=== PATIENT | female | born 1975 | race African-American/Black ===

== ENCOUNTER 2016-06-29 06:15 | Inpatient (IN) | payer MEDICARE ==
[~2016-06-29] VITALS: Ht 167.6 cm; Wt 72.9 kg
[2016-06-29] MEDS ORDERED: RESTORIL15 MG PO ×2 (06:32→06:43)
[2016-06-29] MEDS ORDERED: CYCLOBENZAPRINE5 MG PO (06:32)
[2016-06-29] MEDS ORDERED: METOPROLOL TART50 MG PO (06:38)
[2016-06-29] MEDS ORDERED: MEGACE 20 MG TA20 MG PO (06:38)
[2016-06-29] MEDS ORDERED: PHOSLO667 MG PO (06:39)
[2016-06-29] MEDS ORDERED: PEPCID40 MG PO (06:39)
[2016-06-29] MEDS ORDERED: LIPITOR40 MG PO (06:40)
[2016-06-29] MEDS ORDERED: COZAAR100 MG PO (06:40)
[2016-06-29] MEDS ORDERED: ZOFRAN8 MG PO (06:40)
[2016-06-29] MEDS ORDERED: ELAVIL25 MG PO (06:41)
[2016-06-29] MEDS ORDERED: ASPIRIN325 MG PO (06:41)
[2016-06-29] MEDS ORDERED: PROTONIX40 MG PO (06:42)
[2016-06-29] MEDS ORDERED: RENA-VITE TABL0.8 MG PO (06:43)
--- NOTE | 2016-06-29 07:57 | NUR ---
AM ROUNDING- RECEIVED REPORT FROM BANKING ANALYST NURSE GENET. PT IS CURRENTLY LAYING IN BED ON LEFT SIDE WITH EYES OPEN RESTING. PT STATES SHE IS HAVING SLIGHT CHEST PAIN, WHEN ASKED PT IF CHEST PAIN IS WHEN SHE TAKES DEEP BREATH IN PT STATES "YES". EKG DONE BY STAFF DEVELOPMENT NURSE. ASKED SELMA IN TELEMETRY TO GET PT HEART MONITOR READY. ON 02 AT 2L VIA NC. RESERVE RIGHT ARM FOR AVF (PT DIALYSES ON M, W, AND F PER REPORT). 18G IV SEEN TO LEFT FOREARM THAT IS CURRENTLY SALINE LOCKED. 20G IV SEEN TO LEFT HAND THAT IS CURRENTLY SALINE LOCKED. PER GENET, RITA; MED REC WAS DONE THIS AM BUT PT STILL NEEDS ADMISSION ASSESSMENT/ADMISSION HISTORY DONE. WILL GET DONE TODAY ON SHIFT. WILL CONTINUE TO MONITOR AND CONTINUE WITH PLAN OF CARE.
[2016-06-29 08:37] VITALS: BP 129/91
--- NOTE | 2016-06-29 10:13 | NUR ---
PLACED ON MONITOR. MONITOR SHOWING ST, HR 138 1013- PAGED KRYSTAL WITH RENAL TO INFORM HER OF PTS HR. AWAITING CALLBACK.
[2016-06-29 10:15] VITALS: BP 112/87; BMI 24.7
--- NOTE | 2016-06-29 11:04 | NUR ---
PAGED DR. OLMEDO BECAUSE I HAVE NOT YET HEARD BACK FROM NADIYA RICE TO INFORM HIM OF PTS ST, HR 138. WILL AWAIT CALLBACK AND CONTINUE TO MONITOR.
--- NOTE | 2016-06-29 11:09 | NUR ---
RECEIVED CALLBACK FROM DR. OLMEDO (BAND LOG MILL AND CARRIAGE OPERATOR FOR RENAL). GAVE TELEPHONE ORDERS FOR 5MG OF CARDIZEM IV ONCE. DR. OLMEDO STATED TO CALL DR. JOYNER FOR CONSULT. WILL DO ORDERED AND CONTINUE TO MONITOR.
--- NOTE | 2016-06-29 12:11 | NUR ---
PTS ADMISSION ASSESSMENT AND ADMISSION HISTORY DONE.
--- NOTE | 2016-06-29 12:28 | NUR ---
ON MONITOR SHOWING SR, HR 86.
[2016-06-29 12:32] VITALS: BP 109/79
[2016-06-29 14:02] VITALS: Ht 167.6 cm; Wt 72.9 kg
--- NOTE | 2016-06-29 14:21 | NUR ---
1245- PT TO DIALYSIS VIA WHEELCHAIR.
--- NOTE | 2016-06-29 17:51 | NUR ---
PT IS STILL DOWN IN DIALYSIS. HAVE NOT RECEIVED CALL FROM DIALYSIS NURSE YET. WILL AWAIT DIALYSIS NURSE TO CALL AND GIVE REPORT.
--- NOTE | 2016-06-29 18:04 | NUR ---
PT BACK FROM DIALYSIS VIA WHEELCHAIR.
--- NOTE | 2016-06-29 20:22 | NUR ---
ASSESSMENT DONE. PT LAYING IN BED WATCHING TV, AND TEXTING ON PHONE. HOB ELEVATED. NO DISTRESS NOTED. WHEN NURSE ASKED PT ABOUT CP SHE STATES "IT IS JUST MOSTLY INDIGESTION I THINK." PT DENIES PAIN IN LEFT ARM OR NECK. DENIES SOB. DENIES NEEDS OR WANTS AT THIS TIME. CALL LIGHT WITH IN REACH. WILL CONT. TO MONITOR.
[2016-06-29 20:57] VITALS: BP 134/93
--- NOTE | 2016-06-29 21:45 | NUR ---
PT SLEEPING. EASILY AWAKEN. MEDS GIVEN. PT REQUEST A SNACK, STATING SHE IS HUNGERY. SANDWICH PROVIDED. PT DENIES OTHER NEEDS AT THIS TIME. WILL WILL CONT. TO MONITOR.
[2016-06-29 23:00] VITALS: BP 105/77
--- NOTE | 2016-06-30 00:57 | NUR ---
PT SLEEPING. EYES CLOSED. RESP EVEN AND UNLABORED. NO DISTRESS NOTED. CALL LIGHT WITH IN REACH. WILL CONT. TO MONITOR.
--- NOTE | 2016-06-30 02:50 | NUR ---
PT SLEEPING. RESP EVEN AND UNLABORED. APPEARS COMFORTABLE. CALL LIGHT WITH IN REACH. WILL CONT. TO MONITOR.
--- NOTE | 2016-06-30 03:42 | NUR ---
SOCIAL SERVICES SPECIALIST AT BEDSIDE TO OBTAIN VITALS, CALL LIGHT IN REACH. WILL CONTINUE WITH PLAN OF CARE.
--- NOTE | 2016-06-30 04:44 | NUR ---
PT SLEEPING. APPEARS COMFORTABLE. RESP EVEN AND UNLABORED. CALL LIGHT WITH IN REACH. WILL CONT. TO MONITOR.
[2016-06-30 05:47] VITALS: BP 101/71
[2016-06-30 05:48] LABS: EOSINOPHILS 10.5 % (0-7); HEMATOCRIT 31.7 % (36.0-48.0); HEMOGLOBIN 9.6 g/dL (12-16); IMMATURE GRANULOCYTES 0.1 % (0-5); LYMPHOCYTES 9.3 % (15-50); MCH 27.5 pg (26.0-34.0); MCHC 30.3 g/dL (31.0-37.0); MCV 90.8 fL (80.0-100.0); MEAN PLATELET VOLUME 10.2 fL (7.4-10.4); MONOCYTES 18.1 % (2-11); PLATELET COUNT 292 10x3/uL (130-400); RBC 3.49 10x6/uL (4.00-5.40); RDW 17.2 % (11.5-14.5); WBC 8.7 10x3/uL (4.8-10.8)
[2016-06-30 06:29] LABS: ANION GAP 16.5 mmol/L (8-16); CALCIUM 8.4 mg/dL (8.5-10.1); CARBON DIOXIDE 29.1 mmol/L (21.0-32.0); CREATININE - SERUM 5.7 mg/dL (0.6-1.3); POTASSIUM - SERUM 3.6 mmol/L (3.5-5.1)
--- NOTE | 2016-06-30 07:37 | NUR ---
AM ROUNDING- RECEIVED REPORT FROM GETTERER NURSE GENET. PT IS CURRENTLY LAYING IN BED ON LEFT SIDE WITH EYES CLOSED RESTING. ON MONITOR SHOWING SR, HR 84. ON O2 AT 2L VIA NC. IV SEEN TO LEFT HAND THAT IS CURRENTLY SALINE LOCKED. SECOND IV SEEN TO LEFT FOREARM THAT IS CURRENTLY SALINE LOCKED. PT IS RESERVE RIGHT ARM FOR AVF (PT DIALYZES ON M, W, AND F). NO NEED AT CURRENT TIME. WILL CONTINUE TO MONITOR AND CONTINUE WITH PLAN OF CARE.
[2016-06-30 08:03] VITALS: BP 105/70
[2016-06-30 12:10] VITALS: BP 105/80
--- NOTE | 2016-06-30 12:45 | NUR ---
DIALYSIS COORDINATOR: PATHWAYS: Amanda [facility] Dialysis on MWF am shift. Med records forwarded to the clinic and clinic notified. FABIANO SNYDER.
[2016-06-30 15:49] VITALS: BP 95/65
--- NOTE | 2016-06-30 18:25 | NUR ---
PT LAYING IN BED ON BACK WITH EYES OPEN RESTING. DENIES ANY NEED AT CURRENT TIME. WILL CONTINUE TO MONITOR.
--- NOTE | 2016-06-30 19:30 | NUR ---
RESUMED CARE OF PT, LYING IN BED RESPIRATIONS EVEN AND UNLABORED ON 2LPM VIA NC. [address] WITH PVCS ON TELEMETRY. LEFT HAND AND FOREARM SALINE LOCKED. CALL LIGHT IN REACH. WILL CONTINUE TO MONITOR. SEE NURSE ASSESSMENT.
[2016-06-30 20:00] VITALS: BP 101/60
--- NOTE | 2016-06-30 22:00 | NUR ---
PT SITTING UP IN BED WATCHING TV. DENIES PAIN. ASSESSMENT COMPLETE PER FLOW-SHEET. BROUGHT PT PEANUT BUTTER AND GRAHAMS CRACKERS FOR SNACK. NO OTHER NEEDS. WILL CONTINUE TO MONITOR.
[2016-07-01] VITALS: BP 105/70
[2016-07-01 04:00] VITALS: BP 92/57
[2016-07-01 05:51] LABS: BASOPHILS 0.4 % (0.0-2.0); EOSINOPHILS 12.4 % (0-7); HEMATOCRIT 28.4 % (36.0-48.0); HEMOGLOBIN 8.9 g/dL (12-16); IMMATURE GRANULOCYTES 0.4 % (0-5); LYMPHOCYTES 11.2 % (15-50); MCH 28.1 pg (26.0-34.0); MCHC 31.3 g/dL (31.0-37.0); MCV 89.6 fL (80.0-100.0); MEAN PLATELET VOLUME 9.7 fL (7.4-10.4); MONOCYTES 15.9 % (2-11); NEUTROPHILS 59.7 % (40-80); PLATELET COUNT 304 10x3/uL (130-400); RBC 3.17 10x6/uL (4.00-5.40); WBC 7.8 10x3/uL (4.8-10.8)
[2016-07-01 06:00] LABS: ANION GAP 10.3 mmol/L (8-16); CALCIUM 8.7 mg/dL (8.5-10.1); CARBON DIOXIDE 32.4 mmol/L (21.0-32.0); CREATININE - SERUM 7.1 mg/dL (0.6-1.3); POTASSIUM - SERUM 3.7 mmol/L (3.5-5.1)
--- NOTE | 2016-07-01 07:35 | NUR ---
Awake easily, verbalized name and , reserve right arm fistula. Scheduled for dialysis today. Verbalized no complaints.
[2016-07-01 08:58] VITALS: BP 118/64
--- NOTE | 2016-07-01 10:19 | CN ---
PATIENT NAME:TIFF HERRERA MEDICAL RECORD: [id number] : [birth year] LOCATION:D. D.2136 ADMIT DATE: 06/29/16 ACCOUNT: [id number] CONSULTING PHYSICIAN: CRISTELA JOYNER MD REFERRING PHYSICIAN: ROLANDO DAEV MD DATE OF CONSULTATION: 06/29/2016 Cardiology Consultation DIAGNOSES: 1. Tachycardia. 2. Aortic, mitral and tricuspid valve replacement at [facility]. 3. Hypertension. 4. End-stage renal failure, on dialysis. HISTORY OF PRESENT ILLNESS: Mrs. Herrera presents with tachycardia and chest pain. She had this during dialysis. She was normally seen by Dr. Leal in [place]. It sounds like from her history, she had a transcatheter valve replacement of the aortic valve in November of last year and then she continued to have problems with some mitral and tricuspid valve. These were placed in May of this year. She usually has a heart rate at approximately 100. She is now her heart rate in the 140. She does feel the palpitations. She has some generalized chest discomfort with the tachycardia, but no acute chest discomfort. Her EKG is with no acute ST-T abnormalities, but it is sinus tachycardia in the 140 range. She is on Lopressor 75 mg b.i.d. for the tachycardia as well as she is on losartan at 100 mg q.day. PHYSICAL EXAMINATION: GENERAL APPEARANCE: Well-nourished, well-developed, appears stated age. Level of distress, comfortable. PSYCHIATRIC: Mental status, alert, normal affect. Orientation, oriented to time, place and person. EYES: Lids and conjunctiva, noninjected. No discharge, no pallor. ENT: Lips, teeth, gums, normal dentition. Oropharynx, no cyanosis, no pallor. NECK: Carotid arteries, bilateral normal upstroke, no bruits, no thrills. JUGULAR VEINS: No jugular venous pressure or distention. CERVICAL LYMPH NODES: Nontender, nonenlarged. THYROID: Not enlarged. Nontender. No nodules. LUNGS: Respiratory effort, unlabored. CHEST: Normal curvature. No thoracic deformity. No chest wall tenderness. Percussion, resonant. Auscultation, clear. No wheezes, no rales, no rhonchi. CARDIOVASCULAR: Precordial exam, nondisplaced. No heaves or pericardial thrills. Rate and rhythm, regular. Heart sounds, normal S1, normal S2. No S3, no gallop, no rub. Systolic murmur, not heard. Diastolic murmur, not heard. EXTREMITIES: No cyanosis, no edema. Peripheral pulses, full and equal in all extremities, except as noted. No bruits appreciated. ABDOMEN: Soft, nondistended. Normal aorta. No bruit. Nontender. No masses. Liver, nontender, no hepatomegaly. Spleen, nontender, no splenomegaly. MUSCULOSKELETAL: No joint tenderness. No joint swelling. No erythema. NEUROLOGICAL: Normal gait, normal strength, normal tone. SKIN: Warm and dry. REVIEW OF SYSTEMS: The patient reports easy bruising but reports no swollen glands. The patient reports no fever, no night sweats, no significant weight gain, no significant weight loss. No significant exercise tolerance. The CONSULT REPORT [id number] TIFF HERRERA patient reports no dry eyes, no irritation, no vision change. Patient reports no difficulty hearing and no ear pain. Patient reports no frequent nose bleeds or nose and sinus problems. Patient reports on arm pain on exertion. No shortness of breath while lying down. No history of heart murmur. Patient reports no cough, no wheezing or coughing up blood. Patient reports no abdominal pain, no vomiting. Normal appetite. No diarrhea and not vomiting blood. No nausea and no constipation. Patient reports no incontinence. No difficulty urinating. No hematuria. No increased frequency. Patient reports no muscle aches. No weakness, no arthralgias, no back pain. No swelling of the extremities. Patient reports no abnormal mole, no jaundice, no rashes. Reports no loss of consciousness. No weakness and no numbness. No seizures, dizziness, or headaches. The patient reports no depression, no sleep disturbance, feeling safe in a relationship and no alcohol abuse. Patient reports on fatigue. Reports no runny nose or sinus pressure. No itching, no hives, and no frequent sneezing. OVERALL IMPRESSION: At this time, we will center treatment on increasing beta lópez. We will give her 100 mg b.i.d. We will hold the losartan at this point, can even go up to 200 mg b.i.d. of Lopressor to get better heart rate control along with her blood pressure control. TRANSINT:[id number] Voice Confirmation ID: [id number] DOCUMENT ID: [id number] CRISTELA JOYNER MD at 1019 CC: [id number] DICTATION DATE: 06/29/16 1144 FISHING ROD MARKER: 06/29/16 1817 ADM IN [facility] [address] [id number]
[2016-07-01] MEDS ORDERED: METOPROLOL TART50 MG PO (11:17)
[2016-07-01 13:16] VITALS: BP 106/80
--- NOTE | 2016-07-01 14:48 | NUR ---
Just completed ADL's, verbalized no compliants
[2016-07-01 17:21] VITALS: BP 95/60
--- NOTE | 2016-07-01 17:30 | NUR ---
Patient Name: TIFF HERRERA Admission Status: Elective Accout number: [id number] Admission Date: 06-29-2016 : 1975 Admission Diagnosis:TACHYCARDIA, UNSPECIFIED Attending: CLARIBEL Current LOS: 2 Anticipated DC Date:07-01-2016 Planned Disposition: Home WITH HOME HEALTH Primary Insurance: MEDICARE A & B PLANNED EXTERNAL PROVIDER: [facility] Discharge Planning Comments: * Is the patient Alert and Oriented? Yes 0 * How many steps to enter\exit or inside your home? NONE 0 * PCP DR. DAVIS IN [place] 0 * Pharmacy [facility] IN [place] 0 * Preadmission Environment Home Alone 0 * ADLs Independent 0 * Equipment Oxygen 0 * Other Equipment OXYGEN AT NIGHT ONLY [facility] - MEDICAL EQUIPMENT PROVIDER PREFERENCE 0 * List name and contact numbers for known caregivers / representatives who currently or will assist patient after discharge: JAKOB GOMES, AUNT, 0 * Community resources currently utilized Home Health Other 0 * Please name any agencies selected above. [facility], [facility] IN [place], //, [phone], [facility] * Additional services required to return to the preadmission environment? No 0 * Can the patient safely return to the preadmission environment? Yes 0 * Has this patient been hospitalized within the prior 30 days at any hospital? No 0 CM MET WITH PT IN ROOM TO DISCUSS DISCHARGE PLANNING AND NEEDS. PT REPORTS LIVING AT HOME INDEPENDENTLY AND ALONE. PT HAS OXYGEN FOR NIGHT USE ONLY [facility]. PT HAS [facility], NURSING ONCE WEEKLY. PT GOES TO [facility] ON // SCHEDULE, FAMILY [facility]SP[facility]TS. CM DISCUSSED AVAILABILITY OF HOME HEALTH, REHAB SERVICES AND MEDICAL EQUIPMENT. PT DENIES DISCHARGE NEEDS, REPORTS HER AUNT WILL PICK HER UP FOR DISCHARGE HOME. IMPORTANT MESSAGE FROM MEDICARE PROVIDED AND EXPLAINED. TO RESUME HOME HEALTH AT DISCHARGE, NOTIFY [employer] COUNT INCLUDES THE [facility], , FAX DISCHARGE INFORMATION TO [facility] AT [phone]. Steam Hoist Operator: Vipul Krishnan
--- NOTE | 2016-07-01 19:04 | NUR ---
Patient insisting that she is to be discharged home, no discharge order noted. called, per answering service Joy is pv design and installation technician. Call placed for call back.
--- NOTE | 2016-07-01 20:25 | NUR ---
DC'D IV CATH STILL INTACTED. GAVE INFO DC PAPERS, HAD PATIENTS SIGN VERBALIZED UNDERSTANDING. TOOK HER DOWN IN THE WHEELCHAIR AND FAMILY MEMBER TOOK HER HOME.
== END 2016-07-01 20:27 | disposition home health service (06) | DRG 308 ==
LOC: D.M2 06:15 → OBSVTIME 06:15 → D.M2 06:15
PROVIDERS: Internal Medicine; ADMIT Internal Medicine Nephrology
PROC: 5A1D60Z (ICD-10-PCS; principal; 2016-06-29)
DX: R00.0 Tachycardia, unspecified (principal); N18.6 End stage renal disease; I12.0 Hypertensive chronic kidney disease with stage 5 chronic kidney disease or end stage renal disease; R18.8 Other ascites; Z99.2 Dependence on renal dialysis; D63.1 Anemia in chronic kidney disease; Z95.2 Presence of prosthetic heart valve; R51 Headache

== ENCOUNTER 2017-11-14 06:17 | Day surgery (SDC) | payer MEDICARE ==
[~2017-11-14] VITALS: Ht 167.6 cm; Wt 81.6 kg
--- NOTE | ~2017-11-14 | OP ---
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 SURGEON: Kalin Díaz MD ANESTHESIA: Regional nerve block and general with LMA per PARAGLIDING INSTRUCTOR. OPERATION PERFORMED: Implantation of 6 mm standard wall straight Propaten PTFE between the brachial artery just above the antecubital space and the basilic vein, in the upper arm, almost in the axilla. PREOPERATIVE NOTE: This young lady has been on dialysis for a number of years. She has had a very successful right brachiocephalic AV fistula, which was converted to a translocation type fistula to the axillary vein, but has recently been plagued with subclavian vein stenosis. The stenosis is very acute. It occurs at the first rib and the fistula is quite pulsatile and aneurysmal. I felt that this stenosis would certainly recur if it were stented alone and the patient declined claviculectomy. I did not offer first rib resection. She has had a failed graft recently in her left arm, but I believe should probably be able to have a new graft implanted on that side. I would certainly rather try that, then go directly to a thigh graft. For now, she is dialyzing successfully with her aneurysmal right arm fistula and I hope we can continue using this for the next several weeks. If it gets to be really problematic, we can probably dilate the central vein stenosis again to give this more time for her new graft to mature. Under regional block as well as general anesthesia, the patient was prepped and draped in a sterile manner. I examined her first with ultrasound and noted positions of the veins and artery in the axilla and upper arm and the brachial artery in the arm just above the antecubital space. I made 2 incisions, one transversely in the axilla and I exposed the basilic vein all the way up to its juncture with the brachial veins to form the axillary vein. The veins in this area were very easily torn and there was a problem throughout in controlling venous bleeding, but we eventually got it under control with sutures and clips and the use of some thrombin-soaked fibrillar. The basilic vein was controlled with Silastic loops or atraumatic clamps. The vein was opened and flushed with heparinized saline. A 6 mm Propaten standard wall thickness graft was bevelled and then anastomosed end-to-side end of graft to side of vein with running 6-0 Prolene and then all were flushed again with heparinized saline. The incision just above the elbow was deepened and previous vein to brachial artery anastomosis was exposed and the artery fully dissected and controlled with Silastic loops. The vein was found not to be completely occluded. It was ligated and divided and the resultant stump of the old graft was cut down to the arterial anastomosis. The artery was flushed with heparinized saline. The new graft was pulled through a very superficial subcutaneous tunnel down to the distal incision where it was shortened and bevelled and it was anastomosed to OPERATIVE REPORT [id number] TIFF HERRERA D the brachial artery again with continuous running 6-0 Prolene and when occluding loops and clamps were released, excellent flow was established in the new graft. Hemostasis was adequate at all suture lines. The wounds were irrigated with Ancef and gentamicin solution. They were irrigated and infiltrated with 0.25% Marcaine with epinephrine and the wounds were closed without the use of a drain approximating subcutaneous tissues with interrupted inverted 3-0 Vicryl and the skin with running intracuticular 4-0 Monocryl and Dermabond glue. The incisions were each dressed with Maxorb Ag, Tegaderm, and Cavilon skin prep. The patient was noted to have good Doppler continuous flow in the axillary vein proximal to the axillary anastomosis and within the brachial artery above and below the arterial anastomosis. Distally, the signal in the brachial artery was more of a high pressure signal whereas above the anastomosis, the Doppler signal was pulsatile continuous, indicating pulsatile continuous flow. The hand remained warm and pink and there was good radial artery flow by Doppler. PLAN: The patient will be discharged to home today. She will return to see me in my office next week. She is given a prescription for [place] 5/325, 10 of them. She will continue her usual dialysis schedule and all of her preop home medications. TRANSINT:[id number] Voice Confirmation ID: [id number] DOCUMENT ID: [id number] KALIN DÍAZ MD at 1054 CC: [id number] DICTATION DATE: 11/14/17 1446 TANK CAR INSPECTOR: 11/14/17 1532 [facility] 11/14/[id number] [place] [address]
[~2017-11-14 06:17] MED LIST: ASPIRIN325 MG PO; COZAAR100 MG PO; CYCLOBENZAPRINE5 MG PO; ELAVIL25 MG PO; LIPITOR40 MG PO; MEGACE 20 MG TA20 MG PO; METOPROLOL TART50 MG PO; PEPCID40 MG PO; PHOSLO667 MG PO; PROTONIX40 MG PO; RENA-VITE TABL0.8 MG PO; RESTORIL15 MG PO; ZOFRAN8 MG PO
[2017-11-14 07:03] LABS: INR 1.17 (0.85-1.17); PROTIME 14.4 SECONDS (11.6-15.0)
[2017-11-14 07:04] LABS: APTT 42.9 SECONDS (22.8-39.4)
[2017-11-14 07:11] LABS: BASOPHILS 1.2 % (0-2); EOSINOPHILS 6.6 % (0-7); HEMATOCRIT 35.9 % (36.0-48.0); HEMOGLOBIN 11.5 g/dL (12-16); IMMATURE GRANULOCYTES 0.2 % (0-5); LYMPHOCYTES 28.7 % (15-50); MCH 30.8 pg (26.0-34.0); MCV 96.2 fL (80.0-100.0); MEAN PLATELET VOLUME 11.1 fL (7.4-10.4); MONOCYTES 16.5 % (2-11); NEUTROPHILS 46.8 % (40-80); RBC 3.73 10x6/uL (4.00-5.40); RDW 14.6 % (11.5-14.5)
[2017-11-14 07:12] LABS: PLATELET COUNT 190 10x3/uL (130-400)
[2017-11-14 07:16] LABS: ANION GAP 8.5 mmol/L (8-16); CALCIUM 8.8 mg/dL (8.5-10.1); CARBON DIOXIDE 33.4 mmol/L (21.0-32.0); CREATININE - SERUM 7.3 mg/dL (0.6-1.3); POTASSIUM - SERUM 3.9 mmol/L (3.5-5.1)
[2017-11-14] MEDS ORDERED: RENVELA800 MG PO (08:15)
[2017-11-14] MEDS ORDERED: COZAAR50 MG PO (08:16)
[2017-11-14] MEDS ORDERED: ZOLOFT25 MG PO (08:16)
[2017-11-14 08:21] VITALS: BP 178/91; Ht 167.6 cm; Wt 81.6 kg
== END 2017-11-14 16:20 | disposition home or self-care (01) ==
LOC: D.OPS 06:17
PROVIDERS: Surgery
DX: T82.868A Thrombosis due to vascular prosthetic devices, implants and grafts, initial encounter (principal); T82.898A Other specified complication of vascular prosthetic devices, implants and grafts, initial encounter; M32.9 Systemic lupus erythematosus, unspecified; I87.1 Compression of vein; Z01.812 Encounter for preprocedural laboratory examination

== ENCOUNTER 2017-12-05 08:48 | Day surgery (SDC) | payer MEDICARE ==
[~2017-12-05] VITALS: Ht 167.6 cm; Wt 81.6 kg
--- NOTE | ~2017-12-05 | OP ---
PATIENT NAME: TIFF HERRERA MEDICAL RECORD: [id number] :[birth year] LOCATION:D.OPS ADMISSION DATE: SURGEON: KALIN DÍAZ MD DATE OF OPERATION: 12/05/2017 REFERRED BY: Yousif Bird MD PREOPERATIVE DIAGNOSIS: Hematoma and seroma, left arm surrounding the arterial anastomosis of AV graft to the brachial artery. POSTOPERATIVE DIAGNOSIS: Organizing wound hematoma with extensive fat necrosis. OPERATION PERFORMED: Wound exploration and drainage of hematoma. SURGEON: Kalin Díaz MD ANESTHESIA: General with LMA per CROSSTIE INSPECTOR. PREOPERATIVE NOTE: Ms. Herrera is a delightful 42-year-old -Mac[place] female from [place], [place]. She has end-stage renal disease and is on chronic hemodialysis with a right arm felecia-aneurysmal brachiocephalic AV fistula, which now is near end-of-life with thrombosis of right subclavian vein and occlusion. I had not felt that stenting this lesion would be adequate and the patient did not wish to have a claviculectomy and I did not offer her a first rib resection. Instead, I implanted a new PTFE AV graft in the left arm in hopes that we could just start using it and ligate the right arm fistula at some time very soon. Last month, I implanted a [place] Propaten PTFE AV graft in the rainbow configuration from the brachial artery up to the basilic vein. When she presented for followup in my office, she had a large swelling around to the arterial anastomosis, which I thought was hematoma and seroma and she is brought to the operating room now with plans to open that wound and drain and debride as needed. Under anesthesia, the patient was prepped and draped in sterile manner and the previous incision was reopened. I found that there really was very little fluid in this mass. It is predominantly fat necrosis with some organizing hematoma, which I did identify and drain. I debrided the wound as best I could and then placed a 10-mm flat fluted closed suction drain, brought out distally through the skin with a trocar. It was subsequently placed to suction and the wound then irrigated and then closed with interrupted 3-0 Vicryl and then interrupted simple 3-0 Prolene sutures. Sterile dressing was applied and the patient was awakened and taken to the recovery room. This new AV graft in the left arm can probably be used now. Unfortunately, even though I placed this PTFE graft as close to the skin as I could, it is difficult to feel and I am not certain if she is still not going to need further revisionary surgery on this graft or perhaps even a new thigh graft. She will be discharged to home today. I will see her back in my office next week. There was no blood loss during the procedure. All sponges, instruments, and needles were accounted for. One 10-mm flat fluted drain was used, and material and old hematoma from the wound was cultured for aerobic and anaerobic organisms. OPERATIVE REPORT [id number] TIFF HERRERA TRANSINT:[id number] Voice Confirmation ID: [id number] DOCUMENT ID: [id number] KALIN DÍAZ MD at 1709 CC: YOUSIF BIRD [id number] DICTATION DATE: 12/05/17 174 PIPE FITTER MAINTENANCE: 12/05/17 1819 [facility] 12/05/17 [id number] [place] [address]
[~2017-12-05 08:48] MED LIST changes: +COZAAR50 MG PO; +RENVELA800 MG PO; +ZOLOFT25 MG PO
[2017-12-05 09:17] LABS: BASOPHILS 1.3 % (0-2); EOSINOPHILS 9.2 % (0-7); HEMATOCRIT 32.1 % (36.0-48.0); LYMPHOCYTES 27.9 % (15-50); MCH 30.7 pg (26.0-34.0); MCHC 31.2 g/dL (31.0-37.0); MCV 98.5 fL (80.0-100.0); MEAN PLATELET VOLUME 10.5 fL (7.4-10.4); MONOCYTES 14.1 % (2-11); NEUTROPHILS 47.5 % (40-80); PLATELET COUNT 213 10x3/uL (130-400); RBC 3.26 10x6/uL (4.00-5.40); RDW 15.5 % (11.5-14.5); WBC 3.9 10x3/uL (4.8-10.8)
[2017-12-05 09:36] LABS: APTT 45.1 SECONDS (22.8-39.4); INR 1.2 (0.85-1.17); PROTIME 14.7 SECONDS (11.6-15.0)
[2017-12-05 09:43] LABS: ANION GAP 11.3 mmol/L (8-16); CARBON DIOXIDE 33.4 mmol/L (21.0-32.0); CREATININE - SERUM 7.3 mg/dL (0.6-1.3); POTASSIUM - SERUM 3.7 mmol/L (3.5-5.1)
[2017-12-05 10:37] VITALS: BP 181/101; Ht 167.6 cm; Wt 81.6 kg
[2017-12-05] MEDS ORDERED: VIBRAMYCIN50 MG PO (18:52)
[2017-12-05] MEDS ORDERED: HYDROCODON-ACE1 EAC7 PO (18:52)
== END 2017-12-05 19:10 | disposition home or self-care (01) ==
LOC: D.OPS 08:48
PROVIDERS: Internal Medicine Nephrology
DX: T82.838A Hemorrhage due to vascular prosthetic devices, implants and grafts, initial encounter (principal); N18.6 End stage renal disease; Z99.2 Dependence on renal dialysis; T82.868A Thrombosis due to vascular prosthetic devices, implants and grafts, initial encounter; Z01.812 Encounter for preprocedural laboratory examination

== ENCOUNTER 2018-02-20 08:10 | Day surgery (SDC) | payer MEDICARE ==
[~2018-02-20] VITALS: Ht 167.6 cm; Wt 82.6 kg
--- NOTE | ~2018-02-20 | OP ---
PATIENT NAME: TIFF HERRERA MEDICAL RECORD: [id number] :79 LOCATION:D.OPS ADMISSION DATE: SURGEON: KALIN DÍAZ MD DATE OF OPERATION: 02/20/2018 REFERRING PHYSICIAN: Yousif Bird MD PREOPERATIVE DIAGNOSES: Severe right subclavian venous stenosis and venous hypertension in the right upper extremity with aneurysmal breakdown of still patent right brachiocephalic AV fistula. Also end-stage renal disease and dependence on hemodialysis. POSTOPERATIVE DIAGNOSES: Severe right subclavian venous stenosis and venous hypertension in the right upper extremity with aneurysmal breakdown of still patent right brachiocephalic AV fistula. Also end-stage renal disease and dependence on hemodialysis. OPERATION PERFORMED: Ligation of fistula. SURGEON: Kalin Díaz MD ANESTHESIA: General with LMA per FISHER WEIR. PREOPERATIVE NOTE: The patient is a very pleasant 42-year-old -Swiss female, has end-stage renal disease and is on chronic hemodialysis. She had had a right arm AV fistula, brachiocephalic, for some time, but developed a right subclavian venous stenosis which is poorly responsive to balloon dilatation and has good deal of clot and some calcification built up in her aneurysmal right arm fistula. I recommended that we do not stent the thoracic outlet subclavian vein stenosis in this instance. I had offered the patient claviculectomy to decompress the thoracic inlet, but she has declined that. She had a fistula implanted in her left arm, which is functioning well and is being used now. It is providing dependable hemodialysis access. She is back today just to have the fistula in her right arm ligated. Under general anesthesia in supine position, the patient was prepped and draped in sterile manner. I made a longitudinal incision across the AV fistula and raised flaps with sharp dissection. Minimal electrocautery was necessary for hemostasis. I was able to dissect circumferentially around the fistula near the JA and AA. I ligated the fistula doubly with 2-0 silk and then closed the wound with interrupted inverted 3-0 Vicryl and running intracuticular 4-0 Monocryl. The wound was infiltrated and irrigated with 0.25% Marcaine without epinephrine. She was taken to the recovery room in stable condition. Blood loss during the operation was none. No drain was used. No surgical specimen was submitted for histopathology. All sponges, instruments, and needles were accounted for. She will be allowed to go home today and follow up with me in my office in about 2 weeks. TRANSINT:[id number] Voice Confirmation ID: [id number] DOCUMENT ID: [id number] OPERATIVE REPORT [id number] TIFF HERRERA JAMES MD at 0908 CC: YOUSIF BIRD [id number] DICTATION DATE: 02/20/18 160 LAST CLEANER: 02/20/18 1836 [facility] [place] 02/20/[address] [address]
[~2018-02-20 08:10] MED LIST changes: +HYDROCODON-ACE1 EAC7 PO; +VIBRAMYCIN50 MG PO
[2018-02-20 08:49] LABS: BASOPHILS 0.7 % (0-2); HEMATOCRIT 36.6 % (36.0-48.0); HEMOGLOBIN 11.6 g/dL (12-16); LYMPHOCYTES 23.8 % (15-50); MCH 30.5 pg (26.0-34.0); MCHC 31.7 g/dL (31.0-37.0); MCV 96.3 fL (80.0-100.0); MEAN PLATELET VOLUME 10.6 fL (7.4-10.4); MONOCYTES 13.2 % (2-11); NEUTROPHILS 55.3 % (40-80); RDW 15.3 % (11.5-14.5); WBC 5.8 10x3/uL (4.8-10.8)
[2018-02-20 08:50] LABS: PLATELET COUNT 278 10x3/uL (130-400)
[2018-02-20 08:59] LABS: APTT 47.4 SECONDS (22.8-39.4); INR 1.24 (0.85-1.17); PROTIME 15.1 SECONDS (11.6-15.0)
[2018-02-20 09:10] LABS: ANION GAP 10.6 mmol/L (8-16); CALCIUM 9.2 mg/dL (8.5-10.1); CARBON DIOXIDE 38.1 mmol/L (21.0-32.0); POTASSIUM - SERUM 3.7 mmol/L (3.5-5.1)
[2018-02-20 09:24] VITALS: BP 181/115; Ht 167.6 cm; Wt 82.6 kg
== END 2018-02-20 17:30 | disposition home or self-care (01) ==
LOC: D.OPS 08:10
PROVIDERS: Surgery
DX: I87.1 Compression of vein (principal); T82.898A Other specified complication of vascular prosthetic devices, implants and grafts, initial encounter; Y83.8 Other surgical procedures as the cause of abnormal reaction of the patient, or of later complication, without mention of misadventure at the time of the procedure; I12.0 Hypertensive chronic kidney disease with stage 5 chronic kidney disease or end stage renal disease; N18.6 End stage renal disease; Z99.2 Dependence on renal dialysis

== ENCOUNTER 2018-04-24 05:20 | Day surgery (SDC) | payer MEDICARE ==
[2018-04-23 16:52] LABS: BASOPHILS 0.7 % (0-2); EOSINOPHILS 7.1 % (0-7); HEMATOCRIT 35.7 % (36.0-48.0); HEMOGLOBIN 11.4 g/dL (12-16); IMMATURE GRANULOCYTES 0.2 % (0-5); LYMPHOCYTES 15.9 % (15-50); MCH 29.9 pg (26.0-34.0); MCHC 31.9 g/dL (31.0-37.0); MCV 93.7 fL (80.0-100.0); MEAN PLATELET VOLUME 10.8 fL (7.4-10.4); MONOCYTES 9.2 % (2-11); NEUTROPHILS 66.9 % (40-80); PLATELET COUNT 249 10x3/uL (130-400); RBC 3.81 10x6/uL (4.00-5.40); RDW 16.6 % (11.5-14.5); WBC 5.7 10x3/uL (4.8-10.8)
[2018-04-23 17:12] LABS: ANION GAP 12.7 mmol/L (8-16); CALCIUM 8.4 mg/dL (8.5-10.1); CARBON DIOXIDE 31.9 mmol/L (21.0-32.0); CREATININE - SERUM 5.2 mg/dL (0.6-1.3); POTASSIUM - SERUM 3.6 mmol/L (3.5-5.1)
[2018-04-23 17:17] LABS: INR 1.2 (0.85-1.17); PROTIME 14.6 SECONDS (11.6-15.0)
[~2018-04-24] VITALS: Ht 167.6 cm; Wt 77.0 kg
[~2018-04-24 05:20] MED LIST changes: +BENTYL10 MG PO; +CATAPRES0.2 MG PO; +CYCLOBENZAPRINE10 MG PO; +DOXEPIN HCL10 MG PO; +LONITEN10 MG PO; +LOPRESSOR25 MG PO; +NIFEDIPINE ER60 MG PO; +PEPCID AC20 MG PO; -PEPCID40 MG PO; +PHENERGAN25 M1 PO; +SENSIPAR30 MG PO; +SORBITOL4000 ML PO; +ULTRAM50 MG PO; +ZOFRAN4 MG PO
[2018-04-24 07:06] VITALS: BP 185/103; Ht 167.6 cm; Wt 77.0 kg
[2018-04-24] MEDS ORDERED: HYDROCODON-ACE1 EAC7 PO (10:46)
--- NOTE | 2018-04-24 12:55 | NUR ---
JUGULAR IV DC'ED BY DANN WITH NO COMPLICATIONS, TIP INTACT. MV
--- NOTE | 2018-04-24 13:10 | NUR ---
PATIENT LEFT UNIT VIA WHEELCHAIR, PATIENT INSTRUCTIONS GIVEN. PATIENT STATED UNDERSTANDING. MV
--- NOTE | 2018-05-04 13:37 | OP ---
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 OPERATION PERFORMED: Excision of painful thrombosed right arm AV fistula, aneurysmal right arm AV fistula. SURGEON: Kalin Díaz MD ANESTHESIA: General with LMA per MEN'S LOCKER ROOM ATTENDANT. PREOPERATIVE NOTE: Ms. Herrera is a 42-year-old -Algerian female with lupus and renal failure, who has triple cardiac valve problems and is already status post aortic valve replacement. She has had a right arm brachiocephalic AV fistula, which has functioned extremely well, but became extremely aneurysmal associated with a right subclavian vein stenosis or obstruction. She has had a fistula created in her left arm and is dialyzing with that at this time. Her right arm AV fistula has been ligated once previously. It is thrombosed, very large aneurysmal and causes her considerable discomfort and is to be removed today. This is not the usual practice, but this particular fistula is so large and intrusive that it needs to be taken out. DESCRIPTION OF PROCEDURE: Under general anesthetic in supine position, the patient was prepped and draped in sterile manner. I made an incision over the top of the fistula from the deltopectoral groove to the antecubital space and raised skin flaps proximally at the deltopectoral groove. I ligated the cephalic vein with 2-0 silk and transected it. I then dissected it free downwards towards the antecubital space. They are fairly close to the arterial anastomosis. I transected it and then ligated with 2-0 silk and oversewed that stump with several interrupted [id number] 3-0 Vicryl sutures and the stump was turned down and sutured to the investing muscular fascia. Redundant skin was excised and the wound irrigated with saline and then infiltrated with 0.25% Marcaine without epinephrine. The wound was closed over a 10-mm MANE drain, brought out through a separate stab incision with a trocar and attached to suction. The wound was closed with interrupted inverted 3-0 Vicryl and then yaquelin and a sterile dressing applied. She was awakened in stable condition and taken to the recovery room. OPERATIVE REPORT [id number] TIFF HERRERA I will plan for her to go home today with a prescription for Vicodin 5/325, she can take 1 every 4 hours p.r.n. pain. I will ask home health to see her daily and change the dressing and check on her MANE. Our nurses in outpatient are to instruct the patient herself and her family members who are here with her today how to take care of the MANE drain and how to empty and record the volume of output. They are to keep a written record of the volume of drainage, so that we will know when it is appropriate to remove the drain. All sponges, instruments and needles were accounted for. Blood loss was about 20 cc and was unreplaced. Sponges, instruments, and needles were accounted for and the surgical specimen, the excised aneurysmal cephalic vein, arterialized aneurysmal cephalic vein and associated skin and subcutaneous tissue fragments were sent for gross only. No need for histopathology. TRANSINT:[id number] Voice Confirmation ID: [id number] DOCUMENT ID: [id number] KALIN DÍAZ MD at 1337 CC: YOUSIF BIRD [id number] DICTATION DATE: 04/24/18 1101 TIRE WORKER: 04/24/18 1217 [facility] 04/24/18 [facility] [address] [id number]
== END 2018-04-24 13:10 | disposition home or self-care (01) ==
LOC: D.OPS 05:20
PROVIDERS: Surgery
DX: T82.868A Thrombosis due to vascular prosthetic devices, implants and grafts, initial encounter (principal); Y83.9 Surgical procedure, unspecified as the cause of abnormal reaction of the patient, or of later complication, without mention of misadventure at the time of the procedure; M32.9 Systemic lupus erythematosus, unspecified; N18.6 End stage renal disease

== ENCOUNTER 2019-06-28 11:13 | Inpatient (IN) | payer MEDICARE ==
[~2019-06-28] VITALS: Ht 167.6 cm; Wt 53.5 kg
[2019-06-28 12:30] LABS: BASOPHILS 0.3 % (0-2); EOSINOPHILS 1.4 % (0-7); HEMATOCRIT 23.8 % (36.0-48.0); IMMATURE GRANULOCYTES 0.3 % (0-5); LYMPHOCYTES 6.5 % (15-50); MCH 26.2 pg (26.0-34.0); MCHC 29.8 g/dL (31.0-37.0); MCV 87.8 fL (80.0-100.0); MEAN PLATELET VOLUME 10.5 fL (7.4-10.4); MONOCYTES 15.1 % (2-11); NEUTROPHILS 76.4 % (40-80); RBC 2.71 10x6/uL (4.00-5.40); RDW 16.9 % (11.5-14.5); WBC 8.8 10x3/uL (4.8-10.8)
[2019-06-28 12:34] LABS: HEMOGLOBIN 7.1 g/dL (12-16); PLATELET COUNT 199 10x3/uL (130-400)
[2019-06-28 12:44] LABS: INR 1.32 (0.85-1.17); PROTIME 16.2 SECONDS (11.6-15.0)
[2019-06-28 12:45] LABS: APTT 40.3 SECONDS (22.8-39.4)
[2019-06-28 13:04] LABS: CALC OSMOLALITY 267 mosm/kg (275-300); CALCIUM 8.2 mg/dL (8.5-10.1); CARBON DIOXIDE 29.4 mmol/L (21.0-32.0); CHLORIDE - SERUM 95 mmol/L (98-107); CREATININE - SERUM 6.2 mg/dL (0.6-1.3); GLUCOSE 93 mg/dL (74-106); POTASSIUM - SERUM 3.4 mmol/L (3.5-5.1); SODIUM 131 mmol/L (136-145); UREA NITROGEN 27 mg/dL (7-18); eGFR NON AFRICAN AMERICAN 8 mL/min (90-120)
[2019-06-28 13:25] LABS: ALBUMIN 2.1 g/dL (3.4-5.0); ALKALINE PHOSPHATASE 299 U/L (30-120); BILIRUBIN - TOTAL 0.71 mg/dL (0.2-1.3); CKMB 0.1 U/L (0.0-3.6); CREATINE KINASE 13 UL (21-215); PROTEIN - SERUM 7.6 g/dL (6.4-8.2)
[2019-06-28 13:26] LABS: ALT (SGPT) 2 U/L (10-68)
[2019-06-28 13:28] LABS: TROPONIN-I 0.244 ng/mL (0.000-0.060)
[2019-06-28 18:15] VITALS: BP 146/76
[2019-06-28 18:52] LABS: CREATINE KINASE 14 UL (21-215)
[2019-06-28 18:58] LABS: TROPONIN-I 0.209 ng/mL (0.000-0.060)
[2019-06-28 20:45] VITALS: BP 134/78
[2019-06-29 01:36] VITALS: BP 146/76; BMI 19.0
[2019-06-29 04:51] VITALS: BP 101/69
[2019-06-29 05:17] LABS: BASOPHILS 0.4 % (0-2); EOSINOPHILS 2.2 % (0-7); HEMATOCRIT 26.3 % (36.0-48.0); IMMATURE GRANULOCYTES 0.3 % (0-5); LYMPHOCYTES 10.2 % (15-50); MCH 26.8 pg (26.0-34.0); MCHC 30.4 g/dL (31.0-37.0); MEAN PLATELET VOLUME 10.3 fL (7.4-10.4); MONOCYTES 12.4 % (2-11); NEUTROPHILS 74.5 % (40-80); PLATELET COUNT 148 10x3/uL (130-400); RBC 2.99 10x6/uL (4.00-5.40); RDW 16.5 % (11.5-14.5); WBC 7.3 10x3/uL (4.8-10.8)
[2019-06-29 05:56] LABS: ALBUMIN 1.9 g/dL (3.4-5.0); ALKALINE PHOSPHATASE 293 U/L (30-120); ALT (SGPT) 1 U/L (10-68); BILIRUBIN - TOTAL 1.01 mg/dL (0.2-1.3); CALC OSMOLALITY 268 mosm/kg (275-300); CALCIUM 7.8 mg/dL (8.5-10.1); CARBON DIOXIDE 28.4 mmol/L (21.0-32.0); CHLORIDE - SERUM 96 mmol/L (98-107); CKMB 0.5 U/L (0.0-3.6); CREATINE KINASE 24 UL (21-215); CREATININE - SERUM 7.3 mg/dL (0.6-1.3); GLUCOSE 78 mg/dL (74-106); PROTEIN - SERUM 7.3 g/dL (6.4-8.2); SODIUM 131 mmol/L (136-145); UREA NITROGEN 31 mg/dL (7-18); eGFR NON AFRICAN AMERICAN 6 mL/min (90-120)
[2019-06-29 05:57] LABS: TROPONIN-I 0.728 ng/mL (0.000-0.060)
[2019-06-29 07:30] VITALS: BP 105/63
[2019-06-29 11:33] VITALS: Ht 167.6 cm; Wt 53.5 kg
[2019-06-29 11:59] VITALS: BP 120/67
[2019-06-29 15:30] VITALS: BP 118/68
[2019-06-29 20:30] VITALS: BP 126/66
[2019-06-30 01:34] VITALS: BP 114/65
[2019-06-30 03:32] VITALS: BP 99/57
[2019-06-30 06:20] LABS: BASOPHILS 0.3 % (0-2); EOSINOPHILS 1.7 % (0-7); HEMATOCRIT 26.1 % (36.0-48.0); HEMOGLOBIN 7.9 g/dL (12-16); IMMATURE GRANULOCYTES 0.3 % (0-5); LYMPHOCYTES 11.4 % (15-50); MCH 26.1 pg (26.0-34.0); MCHC 30.3 g/dL (31.0-37.0); MCV 86.1 fL (80.0-100.0); MEAN PLATELET VOLUME 10.6 fL (7.4-10.4); MONOCYTES 13.2 % (2-11); NEUTROPHILS 73.1 % (40-80); PLATELET COUNT 172 10x3/uL (130-400); RBC 3.03 10x6/uL (4.00-5.40); RDW 16.4 % (11.5-14.5); WBC 7.6 10x3/uL (4.8-10.8)
[2019-06-30 06:49] LABS: ANION GAP 12.4 mmol/L (8-16); BILIRUBIN - TOTAL 0.87 mg/dL (0.2-1.3); CALCIUM 7.7 mg/dL (8.5-10.1); PHOSPHOROUS 3.1 mg/dL (2.5-4.9); POTASSIUM - SERUM 3.4 mmol/L (3.5-5.1); PROTEIN - SERUM 7.7 g/dL (6.4-8.2); VANCOMYCIN - RANDOM 6.7 ug/mL (10.0-20.0)
[2019-06-30 06:51] LABS: CREATININE - SERUM 5.2 mg/dL (0.6-1.3)
[2019-06-30 08:14] VITALS: BP 112/60
[2019-06-30 09:16] LABS: % SATURATION 12 % (15-55); IRON 17 ug/dl (35-150); TOTAL IRON BIND CAPACITY 132 ug/dl (260-445); UNSAT IRON BIND CAPACITY 115 ug/dl (150-375)
[2019-06-30 11:30] VITALS: BP 114/78
[2019-06-30 14:35] VITALS: BP 143/83
[2019-06-30 20:00] VITALS: BP 115/63
[2019-07-01] VITALS: BP 131/81
[2019-07-01 04:00] VITALS: BP 135/82
[2019-07-01 07:40] LABS: BASOPHILS 1.1 % (0-2); EOSINOPHILS 2.4 % (0-7); IMMATURE GRANULOCYTES 0.5 % (0-5); LYMPHOCYTES 16.2 % (15-50); MCH 26.5 pg (26.0-34.0); MCV 85.4 fL (80.0-100.0); MEAN PLATELET VOLUME 10.7 fL (7.4-10.4); MONOCYTES 15.1 % (2-11); NEUTROPHILS 64.7 % (40-80); PLATELET COUNT 180 10x3/uL (130-400); RDW 16.7 % (11.5-14.5); WBC 9.5 10x3/uL (4.8-10.8)
[2019-07-01 07:49] LABS: HEMATOCRIT 31.6 % (36.0-48.0); HEMOGLOBIN 9.8 g/dL (12-16)
[2019-07-01 08:08] LABS: ALBUMIN 1.8 g/dL (3.4-5.0); ANION GAP 13.2 mmol/L (8-16); BILIRUBIN - TOTAL 0.65 mg/dL (0.2-1.3); CALCIUM 7.5 mg/dL (8.5-10.1); CARBON DIOXIDE 26.7 mmol/L (21.0-32.0); CREATININE - SERUM 6.6 mg/dL (0.6-1.3); POTASSIUM - SERUM 3.9 mmol/L (3.5-5.1); PROTEIN - SERUM 7.5 g/dL (6.4-8.2); VANCOMYCIN - RANDOM 18.9 ug/mL (10.0-20.0)
[2019-07-01 09:35] VITALS: BP 134/76
[2019-07-01 14:23] VITALS: BP 119/88
[2019-07-01 18:45] VITALS: BP 147/90
[2019-07-01 20:00] VITALS: BP 117/83
[2019-07-02] VITALS: BP 129/78
[2019-07-02 04:00] VITALS: BP 128/75
[2019-07-02 06:15] LABS: ALBUMIN 1.8 g/dL (3.4-5.0); ANION GAP 14.2 mmol/L (8-16); BILIRUBIN - TOTAL 0.57 mg/dL (0.2-1.3); CALCIUM 7.2 mg/dL (8.5-10.1); CARBON DIOXIDE 26.7 mmol/L (21.0-32.0); CREATININE - SERUM 7.6 mg/dL (0.6-1.3); PHOSPHOROUS 4.1 mg/dL (2.5-4.9); POTASSIUM - SERUM 3.9 mmol/L (3.5-5.1); PROTEIN - SERUM 7.2 g/dL (6.4-8.2); VANCOMYCIN - RANDOM 16.1 ug/mL (10.0-20.0)
[2019-07-02 06:48] LABS: BASOPHILS 0.8 % (0-2); EOSINOPHILS 2.1 % (0-7); HEMATOCRIT 29.7 % (36.0-48.0); HEMOGLOBIN 9.3 g/dL (12-16); IMMATURE GRANULOCYTES 0.6 % (0-5); LYMPHOCYTES 18.5 % (15-50); MCHC 31.3 g/dL (31.0-37.0); MCV 86.1 fL (80.0-100.0); MEAN PLATELET VOLUME 10.2 fL (7.4-10.4); MONOCYTES 18.7 % (2-11); NEUTROPHILS 59.3 % (40-80); PLATELET COUNT 186 10x3/uL (130-400); RBC 3.45 10x6/uL (4.00-5.40); RDW 16.5 % (11.5-14.5); WBC 10.7 10x3/uL (4.8-10.8)
[2019-07-02] MEDS ORDERED: ELIQUIS2.5 MG PO (07:13)
[2019-07-02] MEDS ORDERED: HYDROCODON-ACE1 EA10 PO (07:14)
[2019-07-02 07:54] LABS: ERYTHROCYTE SEDIMENTATION RATE 55 mm/hr (0-20)
[2019-07-02 08:00] VITALS: BP 114/81
--- NOTE | 2019-07-02 08:40 | MORECARE ---
CASE MANAGEMENT DISCHARGE SUMMARY PATIENT: TIFF HERRERA UNIT: [id number] ADM DATE: 06/28/19 AGE: 43 : [birth year] SEX: F ROOM/BED: D.2107 AUTHOR: DOLLY JUNG PHYSICIAN: REFERRING PHYSICIAN: DOMINIK LANDERS DO DATE OF SERVICE: 07/02/19 Discharge Plan Patient Name: TIFF HERRERA Facility: [facility]:[place] : 1975 Planned Disposition: Home or Self Care Anticipated Discharge Date: 07/02/19 Discharge Date: Expected LOS: 4 Initial Reviewer: [email or web address] Initial Review Date: 06/28/2019 Generated: 07/02/19 9:39 am Patient Name: TIFF HERRERA Page 12325 at 0840 All edits/amendments must be made on the electronic document DICTATION DATE: 07/02/19 0840 MATERIAL MANAGER: SILVER 07/02/19 0840 RPT#: [id number] DC DATE: STATUS: ADM IN [facility] [address] [place] [address] END OF REPORT
--- NOTE | 2019-07-02 08:53 | MORECARE ---
CASE MANAGEMENT DISCHARGE SUMMARY PATIENT: TIFF HERRERA UNIT: [id number] ADM DATE: 06/28/19 AGE: 43 : [birth year] SEX: F ROOM/BED: D.2101 AUTHOR: DOLLY JUNG PHYSICIAN: REFERRING PHYSICIAN: DOMINIK LANDERS DO DATE OF SERVICE: 07/02/19 Discharge Plan Patient Name: TIFF HERRERA Facility: [facility]:[place] : 1975 Planned Disposition: Home or Self Care Anticipated Discharge Date: 07/02/19 Discharge Date: Expected LOS: 4 Initial Reviewer: [email or web address] Initial Review Date: 06/28/2019 Generated: 07/02/19 9:53 am DCPIA - Discharge Planning Initial Assessment Updated by [email or web address]: Rochelle Crarillo on 07/02/19 8:47 am * Is the patient Alert and Oriented? Yes * PCP Dr. Wolfe * Pharmacy [facility] * Preadmission Environment Home Alone * ADLs Independent * Equipment Oxygen * Other Equipment O2 @HS * List name and contact numbers for known caregivers / representatives who currently or will assist patient after discharge: Clarisse Delgado (aunt) [phone] * Verbal permission to speak to the caregivers and representatives has been obtained from the patient. Yes * Community resources currently utilized None * Additional services required to return to the preadmission environment? No * Can the patient safely return to the preadmission environment? Yes * Has this patient been hospitalized within the prior 30 days at any hospital? No Last DP export: 07/02/19 7:40 a Patient Name: TIFF HERRERA Page 48385 at 0853 All edits/amendments must be made on the electronic document DICTATION DATE: 07/02/19852 WEATHERIZATION OPERATIONS MANAGER: SILVER 07/02/19852 RPT#: [id number] DC DATE: STATUS: ADM IN [facility] [address] [place] [address] END OF REPORT
[2019-07-02 11:08] LABS: ACLA - IGG AB 16 GPL U/mL (0-14); ACLA - IGM AB 20 MPL U/mL (0-12)
[2019-07-02 13:25] VITALS: BP 114/81
--- NOTE | 2019-07-02 13:59 | MORECARE ---
CASE MANAGEMENT DISCHARGE SUMMARY PATIENT: TIFF HERRERA UNIT: [id number] ADM DATE: 06/28/19 AGE: 43 : [birth year] SEX: F ROOM/BED: D.2107 AUTHOR: DOLLY JUNG PHYSICIAN: REFERRING PHYSICIAN: DOMINIK LANDERS DO DATE OF SERVICE: 07/02/19 Discharge Plan Patient Name: TIFF HERRERA Facility: [facility]:[place] : 1975 Planned Disposition: Home or Self Care Anticipated Discharge Date: 07/02/19 Discharge Date: Expected LOS: 4 Initial Reviewer: [email or web address] Initial Review Date: 06/28/2019 Generated: 07/02/19 2:59 pm Comments DCP- Discharge Planning Updated by [email or web address]: Rochelle Carrillo on 07/02/19 12:[address] CM met with patient regarding DC plans. PCP: Dr Wolfe. [facility]. Lives alone, Independently. DME: O2 @HS. Denies need for HHS, Rehab, SNF. HD in [place] on , patient drives herself. Denies additional needs at this time. Denies Community resources and feels safe returning to her home. Denies being hospitalized within past 30 days. An aunt will transport her home. DC IMM signed. DCPIA - Discharge Planning Initial Assessment Updated by [email or web address]: Rochelle Carrillo on 07/02/19 8:47 am * Is the patient Alert and Oriented? Yes * PCP Dr. Wolfe * [facility] * Preadmission Environment Home Alone * ADLs Independent * Equipment Oxygen * Other Equipment O2 @HS * List name and contact numbers for known caregivers / representatives who currently or will assist patient after discharge: Clarisse Delgado (aunt) [phone] * Verbal permission to speak to the caregivers and representatives has been obtained from the patient. Yes * Community resources currently utilized None * Additional services required to return to the preadmission environment? No * Can the patient safely return to the preadmission environment? Yes * Has this patient been hospitalized within the prior 30 days at any hospital? No Coverage Notice Reviewer: [email or web address] - Rochelle Carrillo Notice Issued Date-Time: 07/02/2019 13:45 Notice Type: IM Discharge Notice Notice Delivered To: Patient Relationship to Patient: Self Process Coordinator Name: Debby Herrera Delivery Method: HAND - Hand Delivered Felisa Days: Prior Verbal Notification: Recipient Understood Notice: Yes Recipient Signature: Yes Med Rec Note Co-signed by Attending: Coverage Notice Comment: Patient signed DC IMM, refuses copy. Original to chart. Last DP export: 07/02/19 7:53 a Patient Name: TIFF HERRERA Page 15726 at 1359 All edits/amendments must be made on the electronic document DICTATION DATE: 07/02/19 1359 YARN COMBER: SILVER 07/02/19 1359 RPT#: [id number] DC DATE: STATUS: ADM IN [facility] [address] [place] [address] END OF REPORT
--- NOTE | 2019-07-03 08:53 | MORECARE ---
CASE MANAGEMENT DISCHARGE SUMMARY PATIENT: TIFF HERRERA UNIT: [id number] ADM DATE: 06/28/19 AGE: 43 : 79 SEX: F ROOM/BED: D.2107 AUTHOR: DOLLY JUNG PHYSICIAN: REFERRING PHYSICIAN: DOMINIK LANDERS DO DATE OF SERVICE: 07/03/19 Discharge Plan Patient Name: TIFF HERRERA Facility: [facility]:[place] : 1975 Planned Disposition: Home or Self Care Anticipated Discharge Date: 07/02/19 Discharge Date: 07/02/2019 Expected LOS: 4 Initial Reviewer: [email or web address] Initial Review Date: 06/28/2019 Generated: 07/03/19 9:53 am Comments DCP- Discharge Planning Updated by [email or web address]: Rochelle Carrillo on 07/02/19 12:[address] CM met with patient regarding DC plans. PCP: Dr Wolfe. [facility]. Lives alone, Independently. DME: O2 @HS. Denies need for HHS, Rehab, SNF. HD in [place] on /, patient drives herself. Denies additional needs at this time. Denies Community resources and feels safe returning to her home. Denies being hospitalized within past 30 days. An aunt will transport her home. DC IMM signed. DCPIA - Discharge Planning Initial Assessment Updated by [email or web address]: Rochelle Carrillo on 07/02/19 8:47 am * Is the patient Alert and Oriented? Yes * PCP Dr. Wolfe * [facility] * Preadmission Environment Home Alone * ADLs Independent * Equipment Oxygen * Other Equipment O2 @HS * List name and contact numbers for known caregivers / representatives who currently or will assist patient after discharge: Clarisse Delgado (aunt) [phone] * Verbal permission to speak to the caregivers and representatives has been obtained from the patient. Yes * Community resources currently utilized None * Additional services required to return to the preadmission environment? No * Can the patient safely return to the preadmission environment? Yes * Has this patient been hospitalized within the prior 30 days at any hospital? No Coverage Notice Reviewer: [id number] - Rochelle Carrillo Notice Issued Date-Time: 07/02/2019 13:45 Notice Type: IM Discharge Notice Notice Delivered To: Patient Relationship to Patient: Self Program Management Manager Name: Debby Herrera Delivery Method: HAND - Hand Delivered Felisa Days: Prior Verbal Notification: Recipient Understood Notice: Yes Recipient Signature: Yes Med Rec Note Co-signed by Attending: Coverage Notice Comment: Patient signed DC IMM, refuses copy. Original to chart. Last DP export: 07/02/19 12:59 p Patient Name: TIFF HERRERA Page [id number] at 0853 All edits/amendments must be made on the electronic document DICTATION DATE: 07/03/1953 ALLEY CLEANER: SILVER 07/03/19 0853 RPT#: [id number] DC DATE:07/02/19 STATUS: DIS IN [facility] [address] [place] [address] END OF REPORT
[2019-07-03 17:08] LABS: AEROBE ID Preliminary report (())
== END 2019-07-02 13:54 | disposition home or self-care (01) | DRG 814 ==
LOC: D.ER 11:13 → D.M2 14:09
PROVIDERS: Family Medicine; Internal Medicine Medical Oncology; ADMIT Internal Medicine; ATTEND Internal Medicine
DX: D73.5 Infarction of spleen (principal); N18.6 End stage renal disease; J18.9 Pneumonia, unspecified organism; I12.0 Hypertensive chronic kidney disease with stage 5 chronic kidney disease or end stage renal disease; M32.9 Systemic lupus erythematosus, unspecified; K58.9 Irritable bowel syndrome, unspecified; D50.9 Iron deficiency anemia, unspecified

== ENCOUNTER 2019-08-12 15:43 | Inpatient (IN) | payer MEDICARE ==
[~2019-08-12] VITALS: Ht 167.6 cm; Wt 59.5 kg
[~2019-08-12 15:43] MED LIST changes: +ELIQUIS2.5 MG PO; +HYDROCODON-ACE1 EA10 PO
[2019-08-12 16:00] VITALS: BP 105/65
[2019-08-12 16:22] LABS: BASOPHILS 0.5 % (0-2); EOSINOPHILS 3.3 % (0-7); HEMATOCRIT 31.4 % (36.0-48.0); HEMOGLOBIN 9.2 g/dL (12-16); IMMATURE GRANULOCYTES 0.2 % (0-5); LYMPHOCYTES 12.6 % (15-50); MCH 25.4 pg (26.0-34.0); MCHC 29.3 g/dL (31.0-37.0); MCV 86.7 fL (80.0-100.0); MEAN PLATELET VOLUME 9.4 fL (7.4-10.4); MONOCYTES 8.8 % (2-11); NEUTROPHILS 74.6 % (40-80); RBC 3.62 10x6/uL (4.00-5.40); RDW 19.1 % (11.5-14.5); WBC 12.1 10x3/uL (4.8-10.8)
[2019-08-12 16:27] LABS: PLATELET COUNT 541 10x3/uL (130-400)
[2019-08-12 17:03] LABS: ANION GAP 11.8 mmol/L (8-16); CALCIUM 8.8 mg/dL (8.5-10.1); CARBON DIOXIDE 29.1 mmol/L (21.0-32.0); CREATININE - SERUM 7.4 mg/dL (0.6-1.3); POTASSIUM - SERUM 3.9 mmol/L (3.5-5.1)
[2019-08-12 17:18] LABS: BILIRUBIN - TOTAL 0.31 mg/dL (0.2-1.3); PROTEIN - SERUM 7.4 g/dL (6.4-8.2)
[2019-08-12 18:22] VITALS: BP 104/65
--- NOTE | 2019-08-12 19:20 | NUR ---
PATIENT TOT HE FLOOR ASSISTED PATIENT TO HER NEW BED, PATIENT WAS ABLE TO TRANSFER HER SELF. RESTING IN BED NO NEEDS AT THIS TIME. CALL LIGHT WITHIN REACH AND BED IN LOWEST LOCKED POSITION.
[2019-08-12 19:47] VITALS: BP 91/57
--- NOTE | 2019-08-12 20:30 | NUR ---
PAGED AP FOR INSTRUCTIONS ON PATIENT, PATIENT IS REQUESTING FOOD BUT NO ORDERS.
--- NOTE | 2019-08-12 20:39 | NUR ---
FAITH MOSHER CALLED BACK, ADMIT IS LEESA, PAGED HER FOR FURTHER ORDERS.
[2019-08-12 22:00] VITALS: BP 91/57; BMI 23.4
--- NOTE | 2019-08-12 22:24 | NUR ---
PATIENT HAS A RIGHT CHEST HEMASPLIT (PREHOSPITAL), DRESSING CHANGE COMPLETE USES STERILE TECHINQUE.
--- NOTE | 2019-08-12 22:27 | NUR ---
PATIENT ASKS THAT WE CALL REHAB TO FIND OUT HER MEDICATIONS AND WHEN THE LAST TIME SHE TOOK THEM. WILL FOLLOW UP WITH THIS.
[2019-08-12] MEDS ORDERED: PACERONE100 MG PO (23:28)
--- NOTE | 2019-08-12 23:50 | NUR ---
TALKED WITH DR. LANDERS AND SHE ORDERED PATIENTS TO BE RESTARTED, WILL FOLLOW ORDERS. SHE ALSO ASKED FOR NOW PAIN MEDS AND MIDARDINE 5MG. WILL FOLLOW MAY.
[2019-08-13 00:26] VITALS: BP 92/57
--- NOTE | 2019-08-13 01:58 | NUR ---
PHARMACY CALLED AND SAID THEY VERIFIED PATIENT'S ENTRESTO BY MISTAKE AND ASKED IF I COULD PUT IT BACK IN AND UNVERIFIED STATE. I DID SO ASKED, THIS IS TO BE LOOKED AT BY IN HOUSE PHARMACY FOR MEDICATION ALTERINATIVES.
[2019-08-13 03:57] VITALS: BP 110/60
[2019-08-13 06:16] LABS: BASOPHILS 0.6 % (0-2); EOSINOPHILS 3.8 % (0-7); HEMATOCRIT 29.9 % (36.0-48.0); HEMOGLOBIN 8.7 g/dL (12-16); IMMATURE GRANULOCYTES 0.1 % (0-5); LYMPHOCYTES 15.2 % (15-50); MCH 25.1 pg (26.0-34.0); MCHC 29.1 g/dL (31.0-37.0); MCV 86.4 fL (80.0-100.0); MEAN PLATELET VOLUME 9.5 fL (7.4-10.4); MONOCYTES 12.4 % (2-11); NEUTROPHILS 67.9 % (40-80); PLATELET COUNT 550 10x3/uL (130-400); RBC 3.46 10x6/uL (4.00-5.40); RDW 19.1 % (11.5-14.5)
[2019-08-13 06:25] LABS: ANION GAP 15.2 mmol/L (8-16); CALCIUM 8.9 mg/dL (8.5-10.1); CARBON DIOXIDE 26.8 mmol/L (21.0-32.0)
[2019-08-13 09:00] VITALS: BP 110/69
[2019-08-13 10:59] LABS: % SATURATION 40 % (15-55); IRON 39 ug/dl (35-150); TOTAL IRON BIND CAPACITY 97 ug/dl (260-445); UNSAT IRON BIND CAPACITY 58 ug/dl (150-375)
[2019-08-13 11:08] LABS: INR 1.14 (0.85-1.17); PROTIME 14.5 SECONDS (11.6-15.0)
[2019-08-13 12:00] VITALS: BP 102/64
[2019-08-13 12:47] VITALS: Ht 167.6 cm; Wt 59.5 kg
[2019-08-13 16:47] VITALS: BP 106/61
--- NOTE | 2019-08-13 22:05 | NUR ---
PT BACK FROM DIALYSIS, PT AAO X 3, RESP EVEN AND UNLABORED. NO DISTRESS NOTED, CL IN REACH, SR UP X 2.
[2019-08-14 00:12] VITALS: BP 104/46
--- NOTE | 2019-08-14 02:37 | NUR ---
I have reviewed this patient and I concur with the Shift Assessment completed by the Licensed Practical Nurse today this shift.
[2019-08-14 04:55] VITALS: BP 84/51
[2019-08-14 06:19] LABS: BASOPHILS 0.7 % (0-2); EOSINOPHILS 3.4 % (0-7); HEMOGLOBIN 9.2 g/dL (12-16); IMMATURE GRANULOCYTES 0.2 % (0-5); LYMPHOCYTES 13.7 % (15-50); MCH 25.5 pg (26.0-34.0); MCHC 29.7 g/dL (31.0-37.0); MCV 85.9 fL (80.0-100.0); MONOCYTES 10.8 % (2-11); NEUTROPHILS 71.2 % (40-80); PLATELET COUNT 464 10x3/uL (130-400); RBC 3.61 10x6/uL (4.00-5.40); RDW 19.3 % (11.5-14.5); WBC 10.4 10x3/uL (4.8-10.8)
[2019-08-14 06:48] LABS: ALBUMIN 1.8 g/dL (3.4-5.0); ANION GAP 12.2 mmol/L (8-16); BILIRUBIN - TOTAL 0.25 mg/dL (0.2-1.3); CARBON DIOXIDE 28.4 mmol/L (21.0-32.0); CREATININE - SERUM 6.1 mg/dL (0.6-1.3); POTASSIUM - SERUM 3.6 mmol/L (3.5-5.1); PROTEIN - SERUM 6.8 g/dL (6.4-8.2)
--- NOTE | 2019-08-14 09:29 | NUR ---
DR. LANDERS CALLED AND SPOKE WITH ME SHE ASKED IF PT TOLERATED TF OVERNIGHT AND I STATED TO HER SHE DID WELL. I ASKED IF SHE WILL GO TO HD TOMORROW AND WHEN SHE WILL BE DC'D. SHE STATES SHE WANTS HER TO STAY ONE MORE NIGHT TO MAKE SURE SHE IS TOLERATING TF STILL AND SHE CAN GO HOME AFTER HD TOMORROW 08/15/19. SHE ASLO STATES DR. MANCUSO WILL BE ROUNDING TODAY AND HE MAY SAY IT'S OK FOR PT TO GO HOME TODAY BUT SHE WANTS PT STAY ANOTHER NIGHT. I VERBALIZED UNDERSTANDING.
--- NOTE | 2019-08-14 09:29 | NUR ---
spoke with dr. lee and she states pt will keep tf for at home and will most likely dc tomorrow after hd. i verbalized understanding.
--- NOTE | 2019-08-14 09:50 | NUR ---
OVERNIGHT TF COMPLETED. 15ML RESDIUAL FLUSEHD WITH 35ML OF H20. PT STATES SHE HAS NO ABDOMINAL PAIN BLOATING, OR NAUSEA. PT TOLERATED TF WELL.
[2019-08-14 09:53] VITALS: BP 91/59
--- NOTE | 2019-08-14 11:52 | NUR ---
pt took shower. peg tube dressing changed. right chest hemosplit dressing changed using sterile technique.
[2019-08-14 13:33] VITALS: BP 95/58
--- NOTE | 2019-08-14 15:00 | NUR ---
PRIMARY ASKED IF PT WAS LEAVING TODAY TO TOUR DRIVER SHE STATED TO THEM THAT I HAD TALKED TO DR. LANDERS TODAY AND SHE WANTS PT TO STAY ANOTHER NIGHT. THEY STATED TO HER THAT THAT IS FINE WITH THEM.
--- NOTE | 2019-08-14 15:51 | NUR ---
I have reviewed this patient and I concur with the Shift Assessment completed by the Licensed Practical Nurse today this shift.
--- NOTE | 2019-08-14 16:55 | MORECARE ---
CASE MANAGEMENT DISCHARGE SUMMARY PATIENT: TIFF HERRERA UNIT: [id number] ADM DATE: 08/12/19 AGE: 43 : 79 SEX: F ROOM/BED: D.5590 AUTHOR: FABIANADOC PHYSICIAN: REFERRING PHYSICIAN: BRIAN BURTON MD DATE OF SERVICE: 08/14/19 Discharge Plan Patient Name: TIFF HERRERA Facility: [facility]:[place] : 1975 Planned Disposition: Home Anticipated Discharge Date: Discharge Date: Expected LOS: Initial Reviewer: [email or web address] Initial Review Date: 08/14/2019 Generated: 08/14/19 5:54 pm Comments DCP- Discharge Planning Updated by [email or web address]: Valeria Worley on 08/14/19 3:[address] Patient Name: TIFF HERRERA Admission Status: ER Accout number: [id number] Admission Date: 08-12-2019 : 1975 Admission Diagnosis: Attending: BRIAN BURTON Current LOS: 2 Anticipated DC Date: Planned Disposition: Home Primary Insurance: MEDICARE A & B Discharge Planning Comments: CM met with patient to discuss discharge planning/needs. She states she lives alone, but her mother and sister will be staying with her for awhile. Her physical address is [address] in [place]. States she was in a skilled facility for the last 8 days at [facility]. She does not want to return to rehab, she would like to go home with home health. [facility] [place] signed. She states she has been walking with a walker at the SNF and requests a walker. [facility] signed. She has not had tube feedings at home and would like to see if she can have a [employer] company send her feedings. Since her TF is not the only source of nutrition, her insurance may not provide but I will reach out to [employer] and see what we can do. States her aunt will drive her home on discharge. CM will continue to follow and assist with discharge needs. Museum Docent: Valeria Worley DCPIA - Discharge Planning Initial Assessment Updated by [email or web address]: Valeria Worley on 08/14/19 4:29 pm * Is the patient Alert and Oriented? Yes * How many steps to enter\exit or inside your home? 0/0 * PCP Dr. Logan in [place] * Pharmacy [facility] in [place] * Preadmission Environment Longterm Facility * Facility Name [facility] * ADLs Partial Dependent * Partial ADLs (Assistance needed) Ambulation * Equipment Oxygen * List name and contact numbers for known caregivers / representatives who currently or will assist patient after discharge: Clarisse Vidal - [phone] * Verbal permission to speak to the caregivers and representatives has been obtained from the patient. Yes * Community resources currently utilized None * Additional services required to return to the preadmission environment? Yes * Can the patient safely return to the preadmission environment? Yes * Has this patient been hospitalized within the prior 30 days at any hospital? Yes External Providers External Provider: OTHER-OTHER Next Contact Date: Service Request Date: Service Type: Resolution: Reviewer: Comments: [facility] Next Contact Date: Service Request Date: Service Type: Resolution: Reviewer: Comments: External Provider: Sha[facility]en [facility] Next Contact Date: Service Request Date: Service Type: Resolution: Reviewer: Comments: Coverage Notice Reviewer: [email or web address] Worley Notice Issued Date-Time: 08/14/2019 16:48 Notice Type: IM Discharge Notice Notice Delivered To: Patient Relationship to Patient: Self Manager Branch Name: Delivery Method: HAND - Hand Delivered Felisa Days: Prior Verbal Notification: Recipient Understood Notice: Yes Recipient Signature: Yes Med Rec Note Co-signed by Attending: Coverage Notice Comment: IMM explained, signed, given, copy placed in MR Reviewer: [email or web address] Worley Notice Issued Date-Time: 08/14/2019 16:48 Notice Type: Patient Choice Letter Notice Delivered To: Patient Relationship to Patient: Self Manager Branch Name: Delivery Method: HAND - Hand Delivered Felisa Days: Prior Verbal Notification: Recipient Understood Notice: Yes Recipient Signature: Yes Med Rec Note Co-signed by Attending: Coverage Notice Comment: Yariel Ni in [email or web address] Patient Name: TIFF HERRERA Page [id number] at 1655 All edits/amendments must be made on the electronic document DICTATION DATE: 08/14/191653 ASPHALT SPREADER: SILVER 08/14/191653 RPT#: [id number] DC DATE: STATUS: ADM IN [facility] [address] [place] [address] END OF REPORT
--- NOTE | 2019-08-14 17:57 | NUR ---
PT'S SISTER JAKOB GOMES CALLED AND GAVE PW. SHE ASKED IF PT WILL BE DC'ING TOMORROW I STATE YES SHE SHOULD BE AFTER HD TOMORROW AND SHE WILL HAVE HOME HEALTH COME TO THE HOUSE TO HELP WITH TF. SHE VERBALIZED UNDERSTANDING. SHE STATES SHE WILL PROBABLY BE PT'S RIDE FOR DISCHARGE TOMORROW. SHE STATES TO CALL HER NUMBER [phone] AND IF SHE CAN NOT BE REACHED AT THAT NUMBER THEN TO CALL [phone] ONCE PT IS DISCHARGED. I VERBALIZED UNDERSTANDING AND WILL PASS THIS ON IN REPORT.
--- NOTE | 2019-08-14 19:30 | NUR ---
REPORT RECEIVED AND ROUNDING COMPLETE. PATIENT LAYING IN BED IN LOW FOWLERS MAKING PLANS WITH FAMILY ABOUT GOING HOME, DAY NURSE STATES THE PATIENT IS TO GO HOME TOMORROW PER DR. LANDERS BUT NOTE FROM GERISADORA STATES TODAY, WILL CALL FOR FURTHER INSTRUCTIONS. PATIENT HAS A LEFT HAND/WRIST PIV THAT IS SALINE LOCKED AT THIS TIME. PATIENT HAS FEEDING RUNNING AT 30 ML AT THIS TIME INTO HER PEGTUBE. PATIENT STATES SHE HAS NO NEEDS AT THIS TIME. PATIENT SHOWS NO S/SX OF DISTRESS. CALL LIGHT WITHIN REACH AND BED IN LOWEST LOCKED POSITION.
--- NOTE | 2019-08-14 19:45 | NUR ---
SPOKE WITH MERA MOSHER FOR RENAL AND SHE STATES TO FOLLOW DR. MANCUSO'S NOTE AND DISCHARGE PATIENT. SPOKE WITH PATIENT AND SHE IS CALLING HER RIDE HOME THAT LIVES ABOUT 2 HOURS AWAY.
[2019-08-14 20:00] VITALS: BP 88/55
--- NOTE | 2019-08-14 23:00 | NUR ---
REVIEWED DISCHARGE INSTRUCTIONS WITH PATIENT AND PATIENT'S AUNT WHO WILL BE TAKING CARE OF HER AFTER DISCHARGE. BOTH PAITENT AND AUNT STATES THEIR UNDERSTNADING. REMOVED PIV FROM RIGHT WRIST/HAND, CATH INTACT, NO BLEEDING NOTED. STOPPED TUBE FEEDINGS AND FLUSHED PEG TUBE. PATIENT SIGNED ALL DISCHARGE PAPERWORK. ASSISTED WITH DRESSING. PATIENT ESCORTED TO ER BY WHEELCHAIR.
--- NOTE | 2019-08-15 08:33 | MORECARE ---
CASE MANAGEMENT DISCHARGE SUMMARY PATIENT: TIFF HERRERA UNIT: [id number] ADM DATE: 08/12/19 AGE: 43 : 79 SEX: F ROOM/BED: D.2104 AUTHOR: DOLLY JUNG PHYSICIAN: REFERRING PHYSICIAN: BRIAN BURTON MD DATE OF SERVICE: 08/15/19 Discharge Plan Patient Name: TIFF HERRERA Facility: [facility]:[place] : 1975 Planned Disposition: Home Anticipated Discharge Date: Discharge Date: 08/14/2019 Expected LOS: Initial Reviewer: [email or web address] Initial Review Date: 08/14/2019 Generated: 08/15/19 9:33 am Comments DCP- Discharge Planning Updated by [email or web address]: Valeriamichel Worley on 08/15/19 7:[address] CM noted patient discharged last night. I called Singh with [facility] to reach out to the patient to see if she needed help with the purchase of her Nepro and if they would be able to assist with that. I also called [facility] in [place] and spoke with Lila and faxed discharge orders. Lila states they will get orders from Dr. Logan and see her on Monday. I called [facility] and cancelled her delivery of her walker today. PT did not get the chance to do an evaluation, therefore I am unsure of need for walker, so will defer to primary care doctor and home health. CM will reach out to the patient later today to inform her of home health services. DCP- Discharge Planning Updated by [id number]: Valeria Elizabethisa on 08/14/19 3:[address] Patient Name: TIFF HERRERA Admission Status: ER Accout number: [id number] Admission Date: 08-12-2019 : 1975 Admission Diagnosis: Attending: BRIAN BURTON Current LOS: 2 Anticipated DC Date: Planned Disposition: Home Primary Insurance: MEDICARE A & B Discharge Planning Comments: CM met with patient to discuss discharge planning/needs. She states she lives alone, but her mother and sister will be staying with her for awhile. Her physical address is [address] [facility] in [place]. States she was in a skilled facility for the last 8 days at [facility]. She does not want to return to rehab, she would like to go home with home health. [facility] [place] signed. She states she has been walking with a walker at the SNF and requests a walker. [facility] signed. She has not had tube feedings at home and would like to see if she can have a [employer] company send her feedings. Since her TF is not the only source of nutrition, her insurance may not provide but I will reach out to [place] and see what we can do. States her aunt will drive her home on discharge. CM will continue to follow and assist with discharge needs. Visual Display Associate: Valeria Worley DCPIA - Discharge Planning Initial Assessment Updated by [id number]: Valeria Worley on 08/14/19 4:29 pm * Is the patient Alert and Oriented? Yes * How many steps to enter\exit or inside your home? 0/0 * PCP Dr. Logan in [place] * Pharmacy [facility] in [place] * Preadmission Environment [facility] * Facility Name [facility] * ADLs Partial Dependent * Partial ADLs (Assistance needed) Ambulation * Equipment Oxygen * List name and contact numbers for known caregivers / representatives who currently or will assist patient after discharge: Clarisse Vidal - [phone] * Verbal permission to speak to the caregivers and representatives has been obtained from the patient. Yes * Community resources currently utilized None * Additional services required to return to the preadmission environment? Yes * Can the patient safely return to the preadmission environment? Yes * Has this patient been hospitalized within the prior 30 days at any hospital? Yes Coverage Notice Reviewer: [id number] Dean Worley Notice Issued Date-Time: 08/14/2019 16:48 Notice Type: IM Discharge Notice Notice Delivered To: Patient Relationship to Patient: Self Forepart Laster Name: Delivery Method: HAND - Hand Delivered Felisa Days: Prior Verbal Notification: Recipient Understood Notice: Yes Recipient Signature: Yes Med Rec Note Co-signed by Attending: Coverage Notice Comment: IMM explained, signed, given, copy placed in MR Reviewer: [id number] Dean Worley Notice Issued Date-Time: 08/14/2019 16:48 Notice Type: Patient Choice Letter Notice Delivered To: Patient Relationship to Patient: Self Forepart Laster Name: Delivery Method: HAND - Hand Delivered Felisa Days: Prior Verbal Notification: Recipient Understood Notice: Yes Recipient Signature: Yes Med Rec Note Co-signed by Attending: Coverage Notice Comment: [facility] in [employer] Last DP export: 08/14/19 3:55 p Patient Name: TIFF HERRERA Page [id number] at 0833 All edits/amendments must be made on the electronic document DICTATION DATE: 08/15/1933 CROSS TIE CUTTER: SILVER 08/15/19 0833 RPT#: [id number] DC DATE:08/14/19 STATUS: DIS IN [facility] [address] [place] [address] END OF REPORT
--- NOTE | 2019-08-15 09:09 | MORECARE ---
CASE MANAGEMENT DISCHARGE SUMMARY PATIENT: TIFF HERRERA UNIT: [id number] ADM DATE: 08/12/19 AGE: 43 : [birth year] SEX: F ROOM/BED: D.2109 AUTHOR: DOLLY JUNG PHYSICIAN: REFERRING PHYSICIAN: BRIAN BURTON MD DATE OF SERVICE: 08/15/19 Discharge Plan Patient Name: TIFF HERRERA Facility: [facility]:[place] : 1975 Planned Disposition: Home Anticipated Discharge Date: Discharge Date: 08/14/2019 Expected LOS: Initial Reviewer: [email or web address] Initial Review Date: 08/14/2019 Generated: 08/15/19 10:08 am Comments DCP- Discharge Planning Updated by [email or web address]: Valeriamichel Worley on 08/15/19 7:[address] CM noted patient discharged last night. I called Singh with [facility] to reach out to the patient to see if she needed help with the purchase of her Nepro and if they would be able to assist with that. I also called [facility] in [place] and spoke with Lila and faxed discharge orders. Lila states they will get orders from Dr. Logan and see her on Monday. I called [facility] and cancelled her delivery of her walker today. PT did not get the chance to do an evaluation, therefore I am unsure of need for walker, so will defer to primary care doctor and home health. CM will reach out to the patient later today to inform her of home health services. DCP- Discharge Planning Updated by [id number]: Valeria Elizabethisa on 08/14/19 3:[address] Patient Name: TIFF HERRERA Admission Status: ER Accout number: [id number] Admission Date: 08-12-2019 : 1975 Admission Diagnosis: Attending: BRIAN BURTON Current LOS: 2 Anticipated DC Date: Planned Disposition: Home Primary Insurance: MEDICARE A & B Discharge Planning Comments: CM met with patient to discuss discharge planning/needs. She states she lives alone, but her mother and sister will be staying with her for awhile. Her physical address is [address] [facility] in [place]. States she was in a skilled facility for the last 8 days at [facility]. She does not want to return to rehab, she would like to go home with home health. [facility] [place] signed. She states she has been walking with a walker at the SNF and requests a walker. [facility] signed. She has not had tube feedings at home and would like to see if she can have a [employer] company send her feedings. Since her TF is not the only source of nutrition, her insurance may not provide but I will reach out to [place] and see what we can do. States her aunt will drive her home on discharge. CM will continue to follow and assist with discharge needs. Outpatient Coder: Valeria Worley DCPIA - Discharge Planning Initial Assessment Updated by [id number]: Valeria Worley on 08/14/19 4:29 pm * Is the patient Alert and Oriented? Yes * How many steps to enter\exit or inside your home? 0/0 * PCP Dr. Logan in [place] * Pharmacy [facility] in [place] * Preadmission Environment Care Home Facility * Facility Name [facility] * ADLs Partial Dependent * Partial ADLs (Assistance needed) Ambulation * Equipment Oxygen * List name and contact numbers for known caregivers / representatives who currently or will assist patient after discharge: Clarisse Vidal - [phone] * Verbal permission to speak to the caregivers and representatives has been obtained from the patient. Yes * Community resources currently utilized None * Additional services required to return to the preadmission environment? Yes * Can the patient safely return to the preadmission environment? Yes * Has this patient been hospitalized within the prior 30 days at any hospital? Yes Coverage Notice Reviewer: [id number] Dean Worley Notice Issued Date-Time: 08/14/2019 16:48 Notice Type: IM Discharge Notice Notice Delivered To: Patient Relationship to Patient: Self Station Engineer Chief Name: Delivery Method: HAND - Hand Delivered Felisa Days: Prior Verbal Notification: Recipient Understood Notice: Yes Recipient Signature: Yes Med Rec Note Co-signed by Attending: Coverage Notice Comment: IMM explained, signed, given, copy placed in MR Reviewer: [id number] Dean Worley Notice Issued Date-Time: 08/14/2019 16:48 Notice Type: Patient Choice Letter Notice Delivered To: Patient Relationship to Patient: Self Station Engineer Chief Name: Delivery Method: HAND - Hand Delivered Felisa Days: Prior Verbal Notification: Recipient Understood Notice: Yes Recipient Signature: Yes Med Rec Note Co-signed by Attending: Coverage Notice Comment: [facility] in [employer] Last DP export: 08/15/19 7:33 a Patient Name: TIFF HERRERA Page [id number] at 0909 All edits/amendments must be made on the electronic document DICTATION DATE: 08/15/19907 BUILDING DRAFTER: SILVER 08/15/19 09 RPT#: [id number] DC DATE:08/14/19 STATUS: DIS IN [facility] [address] [place] [address] END OF REPORT
== END 2019-08-14 23:02 | disposition home health service (06) | DRG 814 ==
LOC: D.ER 15:43 → OBSVTIME 18:53 → D.M2 18:53
PROVIDERS: Family Medicine; Internal Medicine; ADMIT Internal Medicine Nephrology; ATTEND Internal Medicine Nephrology
PROC: 5A1D70Z Performance of Urinary Filtration, Intermittent, Less than 6 Hours Per Day (ICD-10-PCS; principal; 2019-08-13)
DX: D73.5 Infarction of spleen (principal); N18.6 End stage renal disease; E43 Unspecified severe protein-calorie malnutrition; I12.0 Hypertensive chronic kidney disease with stage 5 chronic kidney disease or end stage renal disease; R62.7 Adult failure to thrive; Z68.23 Body mass index [BMI] 23.0-23.9, adult; I95.9 Hypotension, unspecified; M32.9 Systemic lupus erythematosus, unspecified

== ENCOUNTER 2019-08-19 16:18 | Inpatient (IN) | payer MEDICARE ==
[~2019-08-19] VITALS: Ht 167.6 cm; Wt 55.5 kg
[~2019-08-19 16:18] MED LIST changes: +PACERONE100 MG PO
[2019-08-23 12:56] VITALS: Ht 167.6 cm; Wt 55.5 kg
[2019-08-24 09:44] VITALS: BP 102/55
[2019-08-24] MEDS ORDERED: ROCEPHIN 1 GM/D51 G1 IV (12:59)
[2019-08-24] MEDS ORDERED: Retacrit IV (13:01)
[2019-08-24] MEDS ORDERED: VANCOMYCIN 1 GM/1 G1 IV (13:01)
[2019-08-24] MEDS ORDERED: OxyCONTIN PO (13:02)
[2019-08-24] MEDS ORDERED: oxyCODONE IR PO (13:02)
[2019-08-24] MEDS ORDERED: BUPRENEX IV (13:02)
== END 2019-08-24 21:18 | disposition short-term general hospital (02) | DRG 814 ==
LOC: D.ER 16:18 → D.M2 17:37
PROVIDERS: ADMIT Internal Medicine; ATTEND Internal Medicine
PROC: 5A1D70Z Performance of Urinary Filtration, Intermittent, Less than 6 Hours Per Day (ICD-10-PCS; principal; 2019-08-20)
DX: D73.5 Infarction of spleen (principal); N18.6 End stage renal disease; I61.9 Nontraumatic intracerebral hemorrhage, unspecified; E43 Unspecified severe protein-calorie malnutrition; I12.0 Hypertensive chronic kidney disease with stage 5 chronic kidney disease or end stage renal disease; R18.8 Other ascites; D63.1 Anemia in chronic kidney disease; E21.3 Hyperparathyroidism, unspecified; R62.7 Adult failure to thrive; Z68.20 Body mass index [BMI] 20.0-20.9, adult; M32.9 Systemic lupus erythematosus, unspecified; D50.9 Iron deficiency anemia, unspecified